=== PATIENT | female | born 1970 | race Hispanic/Latino ===

== ENCOUNTER 2019-12-22 14:12 | Observation (INO) | payer MEDICAID ==
[~2019-12-22] VITALS: Ht 160 cm; Wt 112.5 kg
[2019-12-22 15:09] LABS: BASOPHILS % (AUTO) 0.4 % (0.0-5.0); EOSINOPHILS % (AUTO) 2.1 % (0.0-8.0); HEMATOCRIT 38.9 % (36-48); LYMPHOCYTES % (AUTO) 35.8 % (21.0-51.0); MEAN CORPUSCULAR HEMOGLOBIN 25.5 pg (27.0-33.0); MEAN CORPUSCULAR HGB CONC 32.1 g/dL (32.0-36.0); MEAN CORPUSCULAR VOLUME 79.2 fL (79-99); MONOCYTES % (AUTO) 5.5 % (3.0-13.0); NEUTROPHILS % (AUTO) 55.9 % (40.0-77.0); PLATELET COUNT (AUTO) 288 K/uL (130-400); RED BLOOD CELL COUNT(AUTO) 4.91 MIL/uL (4.00-5.50); WHITE BLOOD COUNT (AUTO) 12.2 K/uL (4.8-10.8)
[2019-12-22 15:19] LABS: POTASSIUM 4.1 mmol/L (3.5-5.1)
[2019-12-22 15:22] LABS: INR 1.01 (0.85-1.15); PARTIAL THROMBOPLASTIN TIME 27.8 SEC (26.3-35.5); PROTHROMBIN TIME 10.9 SEC (9.6-11.6)
[2019-12-22 15:24] LABS: ALBUMIN 3.3 g/dL (3.5-5.0); BILIRUBIN,TOTAL 0.3 mg/dL (0.2-1.0); TOTAL PROTEIN, SERUM 7.4 g/dL (6.0-8.3)
[2019-12-22 16:09] LABS: CREATINE KINASE, TOTAL 91 U/L (21-232); MYOGLOBIN 40 ng/mL (10-92); TROPONIN I < 0.04 ng/mL (0.00-0.06)
[2019-12-22] MEDS ORDERED: SODIUM CHLORIDE 0.9% 500ML 500 ML IV SCH (16:15)
[2019-12-22 17:20] VITALS: BP 135/84
[2019-12-22] MEDS ORDERED: ROSU10TA28 PO (18:10)
[2019-12-22] MEDS ORDERED: AUD IH (18:10)
[2019-12-22] MEDS ORDERED: ASPI-1197 PO (18:10)
[2019-12-22] MEDS ORDERED: GLIP5TAB11 PO (18:10)
[2019-12-22] MEDS ORDERED: LEVO125 PO (18:10)
[2019-12-22] MEDS ORDERED: METF-446 PO (18:10)
[2019-12-22] MEDS ORDERED: METO50TA18 PO (18:10)
[2019-12-22] MEDS ORDERED: ISOS30TA6 PO (18:10)
[2019-12-22] MEDS ORDERED: SERT100T12 PO (18:10)
[2019-12-22] MEDS ORDERED: HYDROMORPHONE HCL 0.5 MG/0.5 ML ML IVP PRN (20:15)
[2019-12-22 20:19] VITALS: BP 134/59
[2019-12-22] MEDS ORDERED: METOPROLOL TARTRATE 25 MG TAB PO SCH (21:00)
[2019-12-22 23:55] VITALS: BP 135/57
[2019-12-23] VITALS (12 sets, daily range): BP systolic 111–145; BP diastolic 50–89
[2019-12-23] MEDS ORDERED: DEXTROSE 50%-WATER 50 ML DISP.SYRIN IV PRN (00:15)
[2019-12-23] MEDS ORDERED: GLUCAGON 1MG KIT 1 MG ML IM PRN (00:15)
[2019-12-23] MEDS ORDERED: ONDANSETRON HCL 4 MG/2 ML VIAL IVP PRN (00:15)
[2019-12-23] MEDS ORDERED: NITROGLYCERIN 0.4 MG SL TAB SL PRN (00:15)
[2019-12-23] MEDS: INSULIN HUMULIN R 100 UNIT/ML 3ML SQ SCH ×4 (05:18→20:28)
[2019-12-23 05:45] LABS: BASOPHILS % (AUTO) 0.6 % (0.0-5.0); EOSINOPHILS % (AUTO) 2.5 % (0.0-8.0); HEMATOCRIT 41.5 % (36-48); LYMPHOCYTES % (AUTO) 48.2 % (21.0-51.0); MEAN CORPUSCULAR HEMOGLOBIN 25.1 pg (27.0-33.0); MEAN CORPUSCULAR VOLUME 78.4 fL (79-99); NEUTROPHILS % (AUTO) 43.3 % (40.0-77.0); PLATELET COUNT (AUTO) 320 K/uL (130-400); RED BLOOD CELL COUNT(AUTO) 5.29 MIL/uL (4.00-5.50); WHITE BLOOD COUNT (AUTO) 14.1 K/uL (4.8-10.8)
[2019-12-23 06:25] LABS: B-TYPE NATRIURETIC PEPTIDE 26 pg/mL (0-100)
--- NOTE | 2019-12-23 06:41 | NUR ---
ROUNDS DR. CHAN IN TO SEE PATIENT. UPDATED ON CT SCAN RESULTS. NEW ORDER FOR NEURO CONSULT FOR CONSTANT HEADACHE. ROUNDS DR. MEANS IN TO SEE PATIENT. UPDATED ON LAB RESULTS. CONT WITH PLAN FOR HEART CATH TODAY. NEW ORDER FOR RAPID COVID-19 TEST RECEIVED. ORDER TO BE CARRIED OUT.
[2019-12-23] MEDS: LEVOTHYROXINE 125 MCG TABLET PO SCH (07:30)
[2019-12-23] MEDS: ASPIRIN 81MG TAB.CHEW PO SCH (08:05)
[2019-12-23] MEDS: GLIPIZIDE 5 MG TABLET PO SCH ×2 (08:05→20:14)
[2019-12-23] MEDS ORDERED: METOPROLOL TARTRATE 50 MG TAB PO SCH (09:00)
[2019-12-23] MEDS ORDERED: ASPIRIN 81MG TAB.CHEW PO SCH (09:00)
[2019-12-23] MEDS ORDERED: HEPARIN SODIUM 1000UNIT/ML 10ML VIAL ONE (09:55)
[2019-12-23] MEDS ORDERED: MIDAZOLAM HCL 1 MG/ML 2ML VIAL ONE (09:56)
[2019-12-23] MEDS ORDERED: LIDOCAINE HCL 2% 20ML ONE (09:56)
[2019-12-23] MEDS ORDERED: FENTANYL CITRATE PF 50 MCG/1 ML 2ML VIAL ONE ×2 (09:56→11:16)
[2019-12-23] MEDS ORDERED: NITROGLYCERIN 2 MG/VIAL VIAL IV ONE (09:56)
[2019-12-23] MEDS ORDERED: IOHEXOL 350 MG/ML 100ML INFUS..BTL IV ONE (09:56)
[2019-12-23] MEDS ORDERED: NICARDIPINE HCL 25 MG/10 ML ML IV ONE (09:56)
[2019-12-23] MEDS ORDERED: SODIUM CHLORIDE 0.9% 1000ML 1,000 ML IV SCH (11:45)
[2019-12-23] MEDS ORDERED: ALBUTEROL SULFATE 0.083% 2.5 MG/3 ML INH IH SCH (12:00)
[2019-12-23] MEDS: ALBUTEROL INHALER 90MCG/INH IH SCH ×2 (12:00→18:00)
--- NOTE | 2019-12-23 13:30 | NUR ---
WHEN I ATTEMPTED TO REMOVE 2CC OF AIR FROM PT'S RADIAL BAND IT IMMEDIATLY STARTED BLEEDING SO I PUT BACK THE 2CC AND LEFT BAND INFLATED AT THIS TIME; WILL REASSES
--- NOTE | 2019-12-23 14:08 | NUR ---
DCP CM met with pt discussed dc plans. Pt is independent prior to admission, lives at home with daughter 23y/o has authism, and son 20 y/o. Pt verbalized spouse does not live with her and children but still has him [employer] as emergency contact in case needed. Denies any equipments/services. Feels safe to go back home, still drives and arranges own needs, son able to assist with transportation as necessary. DC plan to home once stable. CM to continue to follow up. Addendum: 12/23/19 at 1412 by JERAD GILL LVN CM Amended: Links added.
[2019-12-23] MEDS ORDERED: GADODIAMIDE 10 MMOL/20 ML VIAL IV ONE (15:07)
--- NOTE | 2019-12-23 19:30 | NUR ---
DRESSING REMOVED PRESSURE CUFF RIGHT RADIAL AREA, NO BLEEDING NOTED, APPLY DRESSING AND OPSITE, NO SOB NO C/O PAIN AT THIS TIME, TEACH PATIENT PLAN OF CARE AND EXPECTED OUTCOME, PATIENT VERBALIZES UNDERSTANDING VIA TEACH BACK
[2019-12-23] MEDS ORDERED: ATORVASTATIN CALCIUM 20 MG TABLET PO SCH ×2 (21:00)
[2019-12-23] MEDS ORDERED: INSULIN GLARGINE 100 UNITS/ML 10 ML VIAL SQ SCH (21:00)
[2019-12-23] MEDS ORDERED: SERTRALINE HCL 50 MG TABLET PO SCH (21:00)
--- NOTE | 2019-12-24 | NUR ---
NURSING OBS RESTING COMFORTABLY, NAD, NO C/O PAIN, DRESSING RIGHT RADIAL D/I, NO BLEEDING OR HEMATOMA NOTICED, CALL ALME[facility] AT [facility]ACH
[2019-12-24 03:51] VITALS: BP 154/87
[2019-12-24] MEDS: ALBUTEROL INHALER 90MCG/INH IH SCH ×2 (05:07→12:00)
[2019-12-24] MEDS: LEVOTHYROXINE 125 MCG TABLET PO SCH (05:55)
[2019-12-24] MEDS: INSULIN HUMULIN R 100 UNIT/ML 3ML SQ SCH ×2 (05:57→13:13)
[2019-12-24 06:31] LABS: CREATININE 0.9 mg/dL (0.5-1.5); POTASSIUM 3.6 mmol/L (3.5-5.1)
[2019-12-24 08:00] VITALS: BP 130/69
[2019-12-24] MEDS: GLIPIZIDE 5 MG TABLET PO SCH (08:32)
[2019-12-24] MEDS: ASPIRIN 81MG TAB.CHEW PO SCH (08:32)
[2019-12-24] MEDS ORDERED: LISINOPRIL 5 MG TABLET PO SCH (09:00)
[2019-12-24] MEDS ORDERED: DILTIAZEM HCL 120 MG CAP.SR.24H PO SCH (09:00)
[2019-12-24 12:00] VITALS: BP 116/82
--- NOTE | 2019-12-24 15:02 | NUR ---
DR AVALOS WAS CONTACTED AND HE CAME AND WROTE SCRIPT FOR CARDIAC RECOMENDED DRUGS; DR HERNANDEZ WHOM DISCHARGED PT DID NOT WRITE A SCRIPT AND STATED THAT CARDIOLOGY NEEDED TO DO THAT; I HAVE COMPLETED D/C PAPERWORK AND GIVEN TO PATIENT AND SHE STATES UNDERSTANDING OF ALL D/C INSTRUCTIONS AND CHANGES IN HOME MEDICATIONS; SHE WILL GO TO SEE DR CHAN THIS THURSDAY FOR F/U; IV ACCESS AND TELEMETRY BOX REMOVED; PT'S HERE TO PICK PT UP.
== END 2019-12-24 15:30 | disposition home or self-care (01) ==
LOC: EDH 14:12 → INTOOBSV 14:13 → EDHIP 14:13 → 3AH 17:15
PROVIDERS: ADMIT Internal Medicine; ATTEND Internal Medicine
DX: R07.89 Other chest pain (principal); Z20.828 Contact with and (suspected) exposure to other viral communicable diseases; I25.10 Atherosclerotic heart disease of native coronary artery without angina pectoris; R51.9 Headache, unspecified; E11.9 Type 2 diabetes mellitus without complications; I10 Essential (primary) hypertension; E78.5 Hyperlipidemia, unspecified; E03.9 Hypothyroidism, unspecified; E66.9 Obesity, unspecified; Z90.710 Acquired absence of both cervix and uterus; Z79.899 Other long term (current) drug therapy; Z88.0 Allergy status to penicillin; Z88.6 Allergy status to analgesic agent; Z68.41 Body mass index [BMI] 40.0-44.9, adult
CPT/HCPCS: 36415 ×3; 70450; 70544; 70553; 71046; 80048; 80053; 82550; 82948 ×6; 83874; 83880; 84484 ×4; 85025 ×2; 85610; 85730; 87426; 93005; 93458; 96372 ×2; 96374; 99285; A9579; C1769; C1894; G0378 ×11; J1170; J1644 ×2; J1815 ×3; J2250; J3010 ×2; J3490 ×3; J7040; Q9965; Q9967; U0003; 99156; 99157

== ENCOUNTER 2020-10-01 10:54 | Observation (INO) | payer MEDICAID ==
[~2020-10-01] VITALS: Ht 160 cm; Wt 100.2 kg
[~2020-10-01 10:54] MED LIST: ASPI-1197 PO; AUD IH; GLIP5TAB11 PO; ISOS30TA92 PO; LEVO125 PO; METF-446 PO; SERT-440 PO
[2020-10-01] MEDS ORDERED: NITROGLYCERIN 0.4 MG SL TAB SL PRN (11:30)
[2020-10-01] MEDS ORDERED: ONDANSETRON 4MG INJ IVP PRN (11:30)
[2020-10-01] MEDS ORDERED: CLONIDINE HCL 0.1 MG TABLET PO PRN (11:30)
[2020-10-01] MEDS: 1/2 NS 1000ML 1,000 ML IV SCH (11:30)
[2020-10-01] MEDS ORDERED: LACTULOSE 20 GM/30 ML UDCUP PO PRN (11:30)
[2020-10-01] MEDS ORDERED: MORPHINE 4 MG SYG IV PRN (11:30)
[2020-10-01] MEDS ORDERED: NITROGLYCERIN 1GM OINT 1 INCH/1GM TD SCH (12:00)
[2020-10-01 12:28] LABS: BASOPHILS % (AUTO) 0.5 % (0.0-5.0); EOSINOPHILS % (AUTO) 1.4 % (0.0-8.0); HEMATOCRIT 37.3 % (36-48); LYMPHOCYTES % (AUTO) 38.2 % (21.0-51.0); MEAN CORPUSCULAR HEMOGLOBIN 26.5 pg (27.0-33.0); MEAN CORPUSCULAR HGB CONC 31.4 g/dL (32.0-36.0); MEAN CORPUSCULAR VOLUME 84.6 fL (79-99); MONOCYTES % (AUTO) 5.4 % (3.0-13.0); NEUTROPHILS % (AUTO) 54.1 % (40.0-77.0); PLATELET COUNT (AUTO) 245 K/uL (130-400); RED BLOOD CELL COUNT(AUTO) 4.41 MIL/uL (4.00-5.50); RED CELL DISTRIBUTION WIDTH 13.9 % (11.0-15.5); WHITE BLOOD COUNT (AUTO) 10.2 K/uL (4.8-10.8)
[2020-10-01] MEDS ORDERED: KCL 20 MEQ ERTAB PO PRN (12:30)
[2020-10-01] MEDS ORDERED: DEXTROSE 50%-WATER 50 ML DISP.SYRIN IV PRN (12:30)
[2020-10-01] MEDS ORDERED: POTASSIUM CHLORIDE 20MEQ/100ML 100 ML IV PRN (12:30)
[2020-10-01] MEDS ORDERED: LIDOCAINE HCL-MPF 1% 2ML VIAL IJ PRN (12:30)
[2020-10-01] MEDS ORDERED: GLUCAGON 1MG KIT 1 MG ML IM PRN (12:30)
[2020-10-01] MEDS ORDERED: POTASSIUM CHLORIDE 10% ELIXIR 20 MEQ/15 ML UDCUP PO PRN (12:30)
[2020-10-01 12:42] VITALS: BP 110/57
[2020-10-01 12:48] LABS: HEMOGLOBIN A1C 10.6 % (4.0-6.0)
[2020-10-01 13:16] LABS: B-TYPE NATRIURETIC PEPTIDE 6 pg/mL (0-100)
[2020-10-01 13:46] LABS: ALANINE AMINOTRANSFERASE 19 U/L (12-78); ALBUMIN 3.4 g/dL (3.5-5.0); ASPARTATE AMINOTRANSFERASE 18 U/L (10-37); BILIRUBIN,TOTAL 0.4 mg/dL (0.2-1.0); CARBON DIOXIDE 25 mmol/L (21-32); CHLORIDE 105 mmol/L (101-111); CREATINE KINASE, TOTAL 96 U/L (21-232); CREATININE 1.2 mg/dL (0.5-1.5); GLOMERULAR FILTR. RATE CALC 51 mL/min (>60); GLUCOSE,RANDOM 278 mg/dL (70-105); MYOGLOBIN 43 ng/mL (10-92); SODIUM SERUM 141 mmol/L (136-145); TOTAL PROTEIN, SERUM 7.2 g/dL (6.0-8.3); TROPONIN I < 0.04 ng/mL (0.00-0.06); UREA NITROGEN, BLOOD 19 mg/dL (7-18)
[2020-10-01] MEDS: RANOLAZINE 500 MG TAB.SR.12H PO SCH ×2 (14:33→22:23)
[2020-10-01] MEDS ORDERED: TRAM50TA4 PO (14:53)
[2020-10-01] MEDS ORDERED: ACET500C4 PO (14:55)
[2020-10-01] MEDS ORDERED: MELO10CA3 PO (14:56)
[2020-10-01 14:57] LABS: APPEARANCE,URINE Clear (CLEAR); BILIRUBIN,URINE Negative (NEGATIVE); COLOR,URINE Yellow (YELLOW); GLUCOSE, URINE (UA) >=1000 mg/dL (NEGATIVE); KETONES,URINE Negative (NEGATIVE); LEUKOCYTE ESTERASE ,URINE Trace (NEGATIVE); NITRATE,URINE Negative (NEGATIVE); OCCULT BLOOD,URINE Trace (NEGATIVE); PROTEIN,URINE 300 mg/dL (NEGATIVE)
[2020-10-01] MEDS ORDERED: PANT40TA54 PO (14:58)
[2020-10-01] MEDS ORDERED: LUBI24CA2 PO (14:59)
[2020-10-01] MEDS ORDERED: LACT10SO9 PO (15:00)
[2020-10-01] MEDS ORDERED: GABA-533 PO (15:01)
[2020-10-01 15:02] LABS: BACTERIA,URINE Few /HPF (None Seen); RBC,URINE 0-1 /HPF (0-1); YEAST,URINE BUDDING Few /HPF (None Seen)
[2020-10-01] MEDS ORDERED: NITR0.4T50 SL (15:02)
[2020-10-01 15:03] LABS: SQUAMOUS EPITHELIAL CELL,UR Moderate /HPF (0-2)
[2020-10-01 15:04] LABS: MUCUS,URINE Few LPF (None Seen)
[2020-10-01] MEDS ORDERED: LISI2.5T2 PO (15:04)
[2020-10-01] MEDS ORDERED: CARB6TAB PO (15:05)
[2020-10-01] MEDS ORDERED: ROSU20TA31 PO (15:06)
[2020-10-01] MEDS ORDERED: DULA1.5P SQ (15:07)
[2020-10-01] MEDS ORDERED: INSU200I4 SQ (15:08)
[2020-10-01] MEDS ORDERED: BUDE10.7 IH (15:10)
[2020-10-01 15:29] VITALS: BP 124/70
[2020-10-01] MEDS: INSULIN R PO SSI SQ SCH ×2 (16:30→21:00)
[2020-10-01 18:10] VITALS: BP 142/81
[2020-10-01 19:44] VITALS: BP 138/81
[2020-10-01] MEDS ORDERED: INSULIN GLARGINE 100 UNITS/ML 10 ML VIAL SQ SCH (21:00)
[2020-10-01] MEDS ORDERED: FAMOTIDINE 20MG TAB PO SCH (21:00)
[2020-10-02] MEDS: 1/2 NS 1000ML 1,000 ML IV SCH (01:07)
[2020-10-02 03:50] VITALS: BP 145/72
[2020-10-02 06:44] VITALS: BP 117/67
[2020-10-02] MEDS ORDERED: RANO500T2 PO (07:03)
[2020-10-02 07:15] LABS: CREATININE 0.9 mg/dL (0.5-1.5); POTASSIUM 3.4 mmol/L (3.5-5.1)
[2020-10-02] MEDS: INSULIN R PO SSI SQ SCH (07:30)
[2020-10-02] MEDS ORDERED: PANTOPRAZOLE 40 MG TAB DR PO SCH (09:00)
[2020-10-02] MEDS ORDERED: PANTOPRAZOLE 40 MG/VIAL IVP SCH (09:00)
== END 2020-10-02 11:22 | disposition home or self-care (01) ==
LOC: EDH 10:54 → EDHIP 10:55
PROVIDERS: ADMIT Internal Medicine; ATTEND Internal Medicine
DX: I20.1 Angina pectoris with documented spasm (principal); R07.89 Other chest pain; I10 Essential (primary) hypertension; E78.5 Hyperlipidemia, unspecified; E78.00 Pure hypercholesterolemia, unspecified; E11.9 Type 2 diabetes mellitus without complications; I95.1 Orthostatic hypotension; Z95.1 Presence of aortocoronary bypass graft
CPT/HCPCS: 36415 ×2; 71046; 80048; 80053; 81001; 82550; 82948 ×3; 83036; 83735; 83874; 83880; 84484; 85025; 86038; 96361 ×2; 96372; 96374; 96375; G0378 ×24; J2270; J2405